=== PATIENT | male | born 1970 | race Caucasian/White ===

== ENCOUNTER → 2019-07-12 10:00 | Outpatient (CLI) | payer BC, SELFPAY ==
--- NOTE | 2019-07-12 10:08 | XR_ITS ---
PROCEDURE: XR CHEST 2V CLINICAL HISTORY: LOWER RESPIRATORY TRACT INFECTION Persistent COMPARISON: No exams were available for comparison FINDINGS: The cardiomediastinal silhouette and pulmonary vascularity are within normal limits. There is a patchy area of atelectasis or infiltrate within the lingula. Suggest following till clear. Mild degenerative changes thoracic spine. IMPRESSION: Patchy atelectasis or infiltrate within the lingula Dictated by: Greg Garcia MD 07/12/2019 10:46 Electronically signed by Greg Garcia MD in [place] 07/12/2019 10:46
== END ==
PROVIDERS: PCP Family Medicine; Visit Provider Family Medicine
DX: J22 Unspecified acute lower respiratory infection (principal)
CPT/HCPCS: 71046